=== PATIENT | male | born 1940 | race Caucasian/White ===

== ENCOUNTER 2017-06-03 12:02 | Emergency (ER) | payer MEDICARE, OTHER ==
[~2017-06-03] VITALS: Ht 170.2 cm; Wt 74.5 kg
[~2017-06-03 12:02] MED LIST: CIPR500T4 PO; NAPR-688 PO; TRAM-40 PO
[2017-06-03 12:08] VITALS: Ht 170.2 cm; Wt 74.5 kg
[2017-06-03] MEDS ORDERED: PRED20TA PO (13:24)
[2017-06-03] MEDS ORDERED: BEN25 PO (13:24)
[2017-06-03] MEDS ORDERED: predniSONE 20 MG TAB PO ONE (13:30)
[2017-06-03] MEDS ORDERED: DIPHENHYDRAMINE 25 MG CAP PO ONE (13:30)
--- NOTE | 2017-06-03 14:40 | ERD ---
ER Documentation Chief Complaint Date/Time DATE: 06/03/17 TIME: 14:38 Chief Complaint RASHES ALL OVER THE BODY (SALMA ISLAS PA-C) HPI 77-year-old male presents emergency department, otherwise healthy, complains of a pruritic rash to his back, neck and scalp that started 2 days ago. Patient states that there is no pain involved. Denies any new foods, medications, lotions or creams. He denies fevers or chills. He has not tried anything for this so far. (SALMA ISLAS PA-C) ROS All systems reviewed and are negative except as per history of present illness. (SALMA ISLAS PA-C) Medications Home Meds Active Scripts Diphenhydramine Hcl* (Benadryl*) 25 Mg Cap, 25 MG PO Q6, #30 CAP Prov:SALMA ISLAS PA-C 06/03/17 Prednisone* (Prednisone*) 20 Mg Tab, 40 MG PO DAILY for 4 Days, TAB Prov:SALMA ISLAS PA-C 06/03/17 Naproxen* (Naproxen*) 500 Mg Tablet, 500 MG PO BID Y for PAIN, #10 TAB Prov:CLAIRE CHAMPION DO 08/13/16 Ciprofloxacin Hcl* (Ciprofloxacin Hcl*) 500 Mg Tablet, 500 MG PO BID for 7 Days , TAB Prov:CLAIRE CHAMPION DO 08/13/16 Reported Medications Tramadol Hcl* (Ultram*) 50 Mg Tablet, 50 MG PO Q8 Y for PAIN, TAB 08/12/16 Allergies Allergies: Coded Allergies: No Known Allergies (Verified Allergy, Unknown, 08/12/16) PMhx/Soc History of Surgery: Yes (Cholecystectomy) Anesthesia Reaction: No Hx Neurological Disorder: No Hx Respiratory Disorders: Yes (Asthma) Hx Cardiac Disorders: No Hx Psychiatric Problems: No Hx Miscellaneous Medical Probl: No Hx Alcohol Use: Yes (3-4 cans of beer/month) Hx Substance Use: No Hx Tobacco Use: Yes Smoking Status: Current every day smoker (SALMA ISLAS PA-C) Physical Exam Vitals Vital Signs Date Time Temp Pulse Resp B/P Pulse Ox O2 Delivery O2 Flow Rate FiO2 06/03/17 12:08 98.1 77 19 137/75 100 (LIZA BATEMAN MD) Physical Exam General: Well-developed, well-nourished. The patient appears in no acute distress. HEENT: Head is normocephalic, atraumatic. No scleral icterus Neck: Supple. Nontender. No angioedema. Lungs: Clear to auscultation. Normal air movement. Heart: Regular rate and rhythm. S1 and S2 are normal. No murmurs, gallops, or rubs. Abdomen: Soft, nontender, nondistended. Bowel sounds are normoactive. Extremities: No clubbing or cyanosis. Normal pulses. Moving extremities x 4. No weakness. Neurologic: Alert and oriented 3. No focal deficits. Skin: Erythematous rash to the trunk on his back, neck and scalp, they are salmon colored, slight elevation to some, there are some patch-like areas as well. Rashes blanchable. (SALMA ISLAS PA-C) Results 24 hrs Current Medications Medications (Trade) Dose Ordered Sig/Rolly Route PRN Reason Start Time Stop Time Status Last Admin Dose Admin Diphenhydramine HCl (Benadryl) 25 mg ONCE ONCE PO 06/03/17 13:30 06/03/17 13:31 DC 06/03/17 13:42 Prednisone (Prednisone) 40 mg ONCE ONCE PO 06/03/17 13:30 06/03/17 13:31 DC 06/03/17 13:41 (LIZA BATEMAN MD) Procedures/MDM 77-year-old male presents with a rash, and symptoms are pruritic, and on the trunk and neck. Patient has not had any fever or flulike symptoms, differential includes dermatitis versus pityriasis rosea. There are no signs of any systemic infection, cellulitis, sepsis, meningitis. Patient's blood pressure was elevated (>120/80) but appears stable without evidence of hypertension emergency or urgency. The patient was counseled about the risks of hypertension and urged to pursue outpatient monitoring and therapy within a week with their primary care physician. (SALMA ISLAS PA-C) note- Subjective-patient complains of itchy rash on his upper back. 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 Plan is antihistamines and prednisone and primary care follow-up and return precautions. (LIZA BATEMAN MD) Departure Diagnosis: Primary Impression: Rash Condition: Good Patient Instructions: Dermatitis, Non-Specific Additional Instructions: Call your primary care doctor TOMORROW for an appointment during the next 1-2 days.See the doctor sooner or return here if your condition worsens before your appointment time. SALMA ISLAS PA-C Jun 03, 2017 14:40 LIZA BATEMAN MD Jun 03, 2017 15:21
== END 2017-06-03 13:55 | disposition home or self-care (01) ==
LOC: FTE 12:02
DX: R21 Rash and other nonspecific skin eruption (principal); F17.210 Nicotine dependence, cigarettes, uncomplicated; J45.909 Unspecified asthma, uncomplicated
CPT/HCPCS: 99283; J7512

== ENCOUNTER 2017-06-07 11:05 | Emergency (ER) | payer MEDICARE, OTHER ==
[~2017-06-07] VITALS: Wt 89.0 kg
[~2017-06-07 11:05] MED LIST changes: +BEN25 PO; +PRED20TA PO
[2017-06-07] MEDS ORDERED: AZIT250T94 PO (12:55)
[2017-06-07] MEDS ORDERED: UDROBDM PO (12:56)
[2017-06-07] MEDS ORDERED: IBUP-1542 PO (12:56)
[2017-06-07] MEDS ORDERED: ACET500C5 PO (12:56)
[2017-06-07] MEDS ORDERED: FLUT16SP17 NASAL (12:56)
[2017-06-07] MEDS ORDERED: PRED20TA PO ×3 (13:14→13:24)
[2017-06-07] MEDS ORDERED: FAMO-96 PO (13:16)
[2017-06-07] MEDS ORDERED: BEN25 PO (13:16)
[2017-06-07] MEDS ORDERED: TRIA15CR55 TOP (13:16)
[2017-06-07 13:50] VITALS: BP 134/71; PULSE 69; RESP 17; TEMP 97.9
--- NOTE | 2017-06-07 14:35 | ERD ---
ER Documentation Chief Complaint Date/Time DATE: 06/07/17 TIME: 14:34 Chief Complaint rash HPI Patient is a 77-year-old male here with friend presents with rash. States same rash that appeared 4 days ago, was seen at ER and given prednisone and benadryl. Has been taking medication and finished prednisone yesterday, however he woke up this morning with the rash again. States it got better yesterday. Denies tongue or lip swelling. Denies fever or chills. Denies shortness of breath or difficulty breathing. Has been taking Benadryl which has helped. However he states the rash is now all over his back and neck and states that it is itchy. Denies pain. ROS All systems reviewed and are negative except as per history of present illness. Medications Home Meds Active Scripts Prednisone* (Prednisone*) 20 Mg Tab, 40 MG PO DAILY for 4 Days, TAB Take 40mg prednisone PO x 3 days, followed by 20mg prednisone PO x 3 days. Prov:SERENA BARTON PA-C 06/07/17 Diphenhydramine Hcl* (Benadryl*) 25 Mg Cap, 25 MG PO Q6, #30 CAP Prov:SERENA BARTON PA-C 06/07/17 Famotidine* (Pepcid*) 20 Mg Tablet, 20 MG PO BID for 7 Days, TAB Prov:SERENA BARTON PA-C 06/07/17 Triamcinolone Acetonide (Triamcinolone Acetonide) 0.1% - 15 Gm Cream.gm., 1 APPLIC TOP BID, #2 TUB Prov:SERENA BARTON PA-C 06/07/17 Diphenhydramine Hcl* (Benadryl*) 25 Mg Cap, 25 MG PO Q6, #30 CAP Prov:SALMA ISLAS PA-C 06/03/17 Prednisone* (Prednisone*) 20 Mg Tab, 40 MG PO DAILY for 4 Days, TAB Prov:SALMA ISLAS PA-C 06/03/17 Naproxen* (Naproxen*) 500 Mg Tablet, 500 MG PO BID Y for PAIN, #10 TAB Prov:CLAIRE CHAMPION DO 08/13/16 Ciprofloxacin Hcl* (Ciprofloxacin Hcl*) 500 Mg Tablet, 500 MG PO BID for 7 Days , TAB Prov:CLAIRE CHAMPION DO 08/13/16 Reported Medications Tramadol Hcl* (Ultram*) 50 Mg Tablet, 50 MG PO Q8 Y for PAIN, TAB 08/12/16 Discontinued Scripts Prednisone* (Prednisone*) 20 Mg Tab, 40 MG PO DAILY for 4 Days, TAB Prov:ORALIASERENA MOSER 06/07/17 Allergies Allergies: Coded Allergies: No Known Allergies (Verified Allergy, Unknown, 08/12/16) PMhx/Soc History of Surgery: Yes (Cholecystectomy) Anesthesia Reaction: No Hx Neurological Disorder: No Hx Respiratory Disorders: Yes (Asthma) Hx Cardiac Disorders: No Hx Psychiatric Problems: No Hx Miscellaneous Medical Probl: No Hx Alcohol Use: Yes (3-4 cans of beer/month) Hx Substance Use: No Hx Tobacco Use: Yes Smoking Status: Current every day smoker FmHx Family History: No coronary disease, No diabetes, No other Physical Exam Vitals Vital Signs Date Time Temp Pulse Resp B/P Pulse Ox O2 Delivery O2 Flow Rate FiO2 06/07/17 13:50 97.9 69 17 134/71 100 Room Air 06/07/17 11:09 98.0 78 18 147/73 99 Physical Exam GENERAL: Well-developed, well-nourished male Appears in no acute distress. HEAD: Normocephalic, atraumatic. EYES: Pupils are equally reactive bilaterally. EOMs grossly intact. No conjunctival erythema. ENT: Moist mucous membranes. No uvula deviation. No kissing tonsils. No exudates. NECK: Supple. No lymphadenopathy or thyromegaly. No meningismus. negative kernig. negative brudinski. LUNG: Clear to auscultation bilaterally. No rhonchi, wheezing, rales or coarse breath sounds. HEART: Regular rate and rhythm. No murmurs, rubs or gallops. BACK: No midline tenderness. Extremities: Equal pulses bilaterally. No peripheral clubbing, cyanosis or edema. No unilateral leg swelling. NEUROLOGIC: Alert and oriented. Moving all four extremities. 5/5 strength in all extremities. Normal speech. Steady gait. SKIN: Normal color. Warm and dry. wheals on back and nack. raised red lesions. blanchable. Capillary refill < 2 seconds Procedures/MDM ER COURSE: I kept the patient and/or family informed of laboratory and diagnostic imaging results throughout the emergency room course. MEDICAL DECISION MAKING: This is a 77-year-old male who presents with rash 5 days. Vital signs were reviewed. Patient is afebrile. Patient is not hypoxic. Patient is not toxic or ill-appearing. Patient's rash are likely urticaria in etiology. Low suspicion for respiratory distress, anaphylaxis, angioedema. Patient will be given a tapered dose of prednisone and Pepcid added to his prescriptions. Low suspicion for necrotizing fasciitis, SJS, toxic epidermal necrolysis, Kawasaki, erythema multiforme, gangrene, scarlet fever, meningococcemia, sepsis, anaphylaxis, sepsis, deep space infection, or foreign body. DISCHARGE: At this time, patient is stable for discharge and outpatient management with no new complaints during the ER course. Patient was sent home with Benadryl, Pepcid , triamcinolone cream and prednisone. Patient will be discharged home with instructions to recheck for new or worsening symptoms such as fever, nausea, weakness, LOC and to follow up with primary care in the next 1-2 days. Patient was advised to return to the ER for any new or worsening symptoms. Plan was discussed and patient and/or family understands and agrees. Home instructions were given. Departure Diagnosis: Primary Impression: Urticaria Condition: Stable Patient Instructions: Hives Additional Instructions: Llame al doctor EDGARANA y aubrie maría TURNER PARA DENTRO DE 1-2 HURLEY.Dgale a la secretaria que nosotros le instruimos hacer esta turner.Avise o llame si byrne condicin se empeora antes de la turner. Regresa aqui si peor o no mejor. SERENA BARTON PA-C Jun 07, 2017 14:35
== END 2017-06-07 13:50 | disposition home or self-care (01) ==
LOC: FTE 11:05
DX: L50.9 Urticaria, unspecified (principal); J45.909 Unspecified asthma, uncomplicated; F17.210 Nicotine dependence, cigarettes, uncomplicated
CPT/HCPCS: 99284